=== PATIENT | male | born 1995 | race Hispanic/Latino ===

== ENCOUNTER 2022-06-29 20:50 | Inpatient (IN) | payer SELFPAY ==
[2022-06-29 21:57] LABS: Anion Gap 16 mmol/L (10-20); BUN (Urea Nitrogen) 12 mg/dL (8.9-20.6); Calc. Creatinine Clearance 0 mL/min (70-130); Carbon Dioxide 21 mmol/L (22-29); Chloride 96 mmol/L (98-107); Potassium 4.2 mmol/L (3.5-5.1); Sodium 129 mmol/L (136-145)
[2022-06-29 21:58] LABS: ALT (SGPT) 245 U/L (8-55); AST (SGOT) 153 U/L (5-34); Albumin 4.1 g/dL (3.5-5.0); Alkaline Phosphatase 136 U/L (40-110); Bilirubin, Total 0.3 mg/dL (0.2-1.2); Estimated GFR 73; Globulin 4.3 g/dL (2.4-3.5); Lipase 38 U/L (8-78); Protein, Total 8.4 g/dL (6.0-8.3)
[2022-06-29 22:09] LABS: Glucose 586 mg/dL (70-105)
[2022-06-29 22:50] LABS: Bilirubin Negative (Negative); Blood, Urine Negative (Negative); Clarity Clear (Clear); Glucose, Urine (Dipstick) Greater than 1000 mg/dL (Negative); Ketone, Urine 10 mg/dL (Negative); Leukocyte Negative Leu/uL (Negative); Nitrite Negative (Negative); Protein, Urine (Dipstick) Negative (Neg-Trace); Specific Gravity, Urine 1.032 (1.002-1.036); Urobilinogen Normal mg/dL (Less than 2); pH, Urine 6.5 (5.0-9.0)
[2022-06-29 22:53] LABS: #Eosinphils 0.1 thou/uL (0.0-0.7); #Monocytes 0.5 thou/uL (0.11-0.59); #Neutrophils 4.3 thou/uL (1.40-6.50); %Basophils 0.6 % (0.0-1.0); %Eosinophils 1.4 % (0.0-10.0); %Lymphocytes 30.9 % (21.0-51.0); %Monocytes 7.1 % (0.0-10.0); %Neutrophils 59.6 % (42.0-75.0); Mean Corpuscular HGB CONC 34.2 g/dL (32.0-36.0); Mean Corpuscular Hemoglobin 30.1 pg (27.0-31.0); Mean Corpuscular Volume 87.8 fl (78.0-98.0); Mean Platelet Volume 11.3 fL (7.4-10.4); Platelet Count 241 10x3/uL (130-400); RBC Distribution Width 12.6 % (11.5-14.5); Red Blood Cell (RBC) Count 4.99 mill/uL (4.70-6.10); White Blood Cell (WBC) Count 7.2 10x3/uL (4.8-10.8)
[2022-06-29] MEDS ORDERED: Insulin Regular 300 UNITS/3 ML VIAL ONE (23:33)
[2022-06-29 23:37] LABS: Calcium, Ionized (venous) 1.13 mmol/L (1.16-1.32); Chloride (VBG) 99 mmol/L (98-106); Hematocrit-VBG 46 % (42.0-52.0); Hemoglobin (Hb) 15.8 g/dL (13.2-17.3); Potassium (VBG) 4.77 mmol/L (3.70-5.30); Sodium 134.4 mmol/L (133-146); pH (venous) 7.371 (7.32-7.43)
[2022-06-30] MEDS ORDERED: Fluconazole 100 MG TAB PO SCH (00:30)
[2022-06-30] MEDS ORDERED: Ondansetron PF 4 MG/2 ML Vial IVP PRN (00:51)
[2022-06-30] MEDS ORDERED: Acetaminophen 325 MG TAB PO PRN (00:51)
[2022-06-30] MEDS ORDERED: Dextrose 50% Abboject 50 ML SYRINGE SLOW IVP PRN (00:55)
[2022-06-30] MEDS ORDERED: Dextrose 5% in Water 1,000 ML IV PRN (00:55)
[2022-06-30] MEDS ORDERED: Sodium Chloride 0.9% 1,000 ML IV SCH (01:30)
[2022-06-30] MEDS ORDERED: Insulin Glargine 30 UNITS/0.3 ML VIAL SC SCH ×2 (02:00→09:00)
[2022-06-30] MEDS: HumaLOG 300 UNITS/3 ML VIAL SC PRN ×4 (05:59→22:54)
[2022-06-30 07:21] LABS: #Basophils 0.1 thou/uL (0.0-0.2); #Eosinphils 0.1 thou/uL (0.0-0.7); #Monocytes 0.5 thou/uL (0.11-0.59); %Basophils 0.8 % (0.0-1.0); %Eosinophils 2.1 % (0.0-10.0); %Lymphocytes 39.3 % (21.0-51.0); %Monocytes 7.9 % (0.0-10.0); %Neutrophils 49.4 % (42.0-75.0); Hemoglobin 14.9 g/dL (14.0-18.0); Mean Corpuscular HGB CONC 33.2 g/dL (32.0-36.0); Mean Corpuscular Hemoglobin 29.9 pg (27.0-31.0); Mean Platelet Volume 10.7 fL (7.4-10.4); Platelet Count 236 10x3/uL (130-400); RBC Distribution Width 12.6 % (11.5-14.5); Red Blood Cell (RBC) Count 4.99 mill/uL (4.70-6.10); White Blood Cell (WBC) Count 6.1 10x3/uL (4.8-10.8)
[2022-06-30 07:59] LABS: HBCM Index 0.08 S/CO (0-0.79); HBSAg Index 0.17 S/CO (0-0.99); Hep A IgM AB Non-Reactive S/CO (NonReactive); Hep A IgM S/CO 0.15 S/CO (0-0.79); Hep B Surf Ag Non-Reactive S/CO (NonReactive); Hep C IgG Ab Non-Reactive S/CO (NonReactive); Hep C Index 0.08 S/CO (0-0.79); Hepatitis B Core IgM Abs Non-Reactive S/CO (NonReactive)
[2022-06-30 08:12] LABS: ALT (SGPT) 209 U/L (8-55); AST (SGOT) 101 U/L (5-34); Albumin 3.9 g/dL (3.5-5.0); Alkaline Phosphatase 117 U/L (40-110); Anion Gap 15 mmol/L (10-20); BUN (Urea Nitrogen) 11 mg/dL (8.9-20.6); Bilirubin, Total 0.3 mg/dL (0.2-1.2); Calc. Creatinine Clearance 237 mL/min (70-130); Calcium 9.1 mg/dL (7.8-10.44); Carbon Dioxide 21 mmol/L (22-29); Chloride 105 mmol/L (98-107); Estimated GFR 117; Globulin 3.6 g/dL (2.4-3.5); Glucose 298 mg/dL (70-105); Potassium 3.6 mmol/L (3.5-5.1); Protein, Total 7.5 g/dL (6.0-8.3); Sodium 137 mmol/L (136-145)
[2022-06-30] MEDS: Heparin 5,000 UNITS/ML VIAL SC SCH ×3 (09:45→22:53)
[2022-06-30] MEDS ORDERED: HumaLOG 300 UNITS/3 ML VIAL SC SCH (12:00)
[2022-06-30 16:18] VITALS: BMI 47.9
[2022-06-30] MEDS: HumaLOG 300 UNITS/3 ML VIAL SC SCH (18:17)
[2022-07-01] MEDS: HumaLOG 300 UNITS/3 ML VIAL SC PRN ×4 (06:43→21:44)
[2022-07-01 08:51] LABS: #Eosinphils 0.1 thou/uL (0.0-0.7); #Monocytes 0.5 thou/uL (0.11-0.59); #Neutrophils 3.5 thou/uL (1.40-6.50); %Basophils 0.7 % (0.0-1.0); %Eosinophils 1.8 % (0.0-10.0); %Lymphocytes 31.2 % (21.0-51.0); %Monocytes 7.9 % (0.0-10.0); %Neutrophils 57.7 % (42.0-75.0); Hemoglobin 15.3 g/dL (14.0-18.0); Mean Corpuscular HGB CONC 33.8 g/dL (32.0-36.0); Mean Corpuscular Hemoglobin 29.8 pg (27.0-31.0); Mean Corpuscular Volume 88.1 fl (78.0-98.0); Mean Platelet Volume 11.2 fL (7.4-10.4); Platelet Count 238 10x3/uL (130-400); RBC Distribution Width 12.6 % (11.5-14.5); Red Blood Cell (RBC) Count 5.14 mill/uL (4.70-6.10); White Blood Cell (WBC) Count 6.1 10x3/uL (4.8-10.8)
[2022-07-01] MEDS ORDERED: Insulin Glargine 30 UNITS/0.3 ML VIAL SC SCH ×2 (09:00)
[2022-07-01 09:16] LABS: ALT (SGPT) 286 U/L (8-55); AST (SGOT) 206 U/L (5-34); Albumin 3.7 g/dL (3.5-5.0); Alkaline Phosphatase 118 U/L (40-110); Anion Gap 12 mmol/L (10-20); BUN (Urea Nitrogen) 8 mg/dL (8.9-20.6); Bilirubin, Total 0.4 mg/dL (0.2-1.2); Calc. Creatinine Clearance 272 mL/min (70-130); Calcium 8.9 mg/dL (7.8-10.44); Carbon Dioxide 24 mmol/L (22-29); Chloride 102 mmol/L (98-107); Estimated GFR 124; Globulin 3.4 g/dL (2.4-3.5); Glucose 279 mg/dL (70-105); Potassium 3.8 mmol/L (3.5-5.1); Protein, Total 7.1 g/dL (6.0-8.3); Sodium 134 mmol/L (136-145)
[2022-07-01] MEDS: Heparin 5,000 UNITS/ML VIAL SC SCH ×3 (09:32→20:34)
[2022-07-01] MEDS: Insulin Glargine 30 UNITS/0.3 ML VIAL SC SCH (09:33)
[2022-07-01] MEDS: HumaLOG 300 UNITS/3 ML VIAL SC SCH ×4 (09:34→17:29)
[2022-07-01] MEDS: metFORMIN 500 MG TAB PO SCH (17:29)
[2022-07-02] MEDS: HumaLOG 300 UNITS/3 ML VIAL SC PRN (05:48)
[2022-07-02 06:45] LABS: #Basophils 0.1 thou/uL (0.0-0.2); #Eosinphils 0.1 thou/uL (0.0-0.7); #Monocytes 0.5 thou/uL (0.11-0.59); #Neutrophils 3.8 thou/uL (1.40-6.50); %Basophils 0.9 % (0.0-1.0); %Eosinophils 1.5 % (0.0-10.0); %Lymphocytes 33.1 % (21.0-51.0); %Neutrophils 56.9 % (42.0-75.0); Hemoglobin 16.3 g/dL (14.0-18.0); Mean Corpuscular HGB CONC 32.6 g/dL (32.0-36.0); Mean Corpuscular Hemoglobin 29.3 pg (27.0-31.0); Mean Corpuscular Volume 89.9 fl (78.0-98.0); Mean Platelet Volume 11.1 fL (7.4-10.4); Platelet Count 264 10x3/uL (130-400); RBC Distribution Width 12.8 % (11.5-14.5); Red Blood Cell (RBC) Count 5.56 mill/uL (4.70-6.10); White Blood Cell (WBC) Count 6.7 10x3/uL (4.8-10.8)
[2022-07-02] MEDS: Heparin 5,000 UNITS/ML VIAL SC SCH ×2 (08:42→15:02)
[2022-07-02] MEDS: HumaLOG 300 UNITS/3 ML VIAL SC SCH ×2 (08:42→12:14)
[2022-07-02] MEDS: metFORMIN 500 MG TAB PO SCH (08:42)
[2022-07-02] MEDS: Insulin Glargine 30 UNITS/0.3 ML VIAL SC SCH (08:43)
[2022-07-02 09:40] LABS: Chloride 101 mmol/L (98-107); Potassium 3.6 mmol/L (3.5-5.1); Sodium 135 mmol/L (136-145)
[2022-07-02 09:41] LABS: Calcium 9.7 mg/dL (7.8-10.44); Glucose 249 mg/dL (70-105)
[2022-07-02 09:42] LABS: Globulin 3.8 g/dL (2.4-3.5); Protein, Total 7.8 g/dL (6.0-8.3)
[2022-07-02 09:43] LABS: Anion Gap 12 mmol/L (10-20); Bilirubin, Total 0.5 mg/dL (0.2-1.2); Carbon Dioxide 26 mmol/L (22-29)
[2022-07-02 09:44] LABS: Alkaline Phosphatase 125 U/L (40-110)
[2022-07-02 09:45] LABS: Calc. Creatinine Clearance 256 mL/min (70-130); Estimated GFR 123
[2022-07-02 09:46] LABS: BUN (Urea Nitrogen) 9 mg/dL (8.9-20.6)
[2022-07-02 09:47] LABS: AST (SGOT) 194 U/L (5-34)
[2022-07-02 09:48] LABS: ALT (SGPT) 311 U/L (8-55)
[2022-07-02 17:24] VITALS: BP 117/82; TEMP 98.3
== END 2022-07-02 16:23 | disposition home or self-care (01) | DRG 638 ==
LOC: ERS 20:50 → T4-B 06-30 00:19 → OBSVTOIN 06-30 15:27
PROVIDERS: ADMIT Internal Medicine; ATTEND Internal Medicine
DX: E11.65 Type 2 diabetes mellitus with hyperglycemia (principal); E87.1 Hypo-osmolality and hyponatremia; Z68.42 Body mass index [BMI] 45.0-49.9, adult; N17.9 Acute kidney failure, unspecified; E66.01 Morbid (severe) obesity due to excess calories; E86.0 Dehydration
CPT/HCPCS: 36415; 36416; 76705; 80053; 80074; 81003; 82010; 82805; 83036; 83690; 83930; 85025; 93005; 96361; 96374; G0378; J1644; J1815; J7050